=== PATIENT | female | born 1960 | race Caucasian/White ===

== ENCOUNTER → 2018-01-06 08:57 | Outpatient (CLI) | payer OTHER, SELFPAY ==
[2018-01-06 09:47] LABS: Alanine Aminotransferase 19 U/L (12-78); Albumin Level 3.5 gm/dL (3.4-5.0); Albumin/Globulin Ratio 0.8 (1.1-1.8); Alkaline Phosphatase 105 U/L (46-116); Aspartate Amino Transferase 17 U/L (15-37); Bilirubin,Total 0.5 mg/dL (0.2-1.0); Blood Urea Nitrogen 11 mg/dL (7-18); Calcium 9.4 mg/dL (8.5-10.1); Carbon Dioxide 28 mmol/L (21.0-32.0); Chloride 106 mmol/L (98-107); Chol/HDL Ratio 5.4 (1-3.5); Cholesterol 193 mg/dL (140-200); Creatinine,Serum 1.03 mg/dL (0.55-1.02); Estimated Glomerular Filt Rate 55 ml/min (>60); GFR (African American) 66 ML/MIN (>60); Globulin 4.3 gm/dl (1.3-3.2); Glucose 227 mg/dL (74-106); HDL Cholesterol 36 mg/dL (29-89); LDL Cholesterol 95 mg/dL (0-130); Sodium 142 mmol/L (136-145); Thyroid Stimulating Hormone 3.31 uIU/ml (0.358-3.740); Total Protein,Serum 7.8 gm/dL (6.4-8.2); Triglycerides 310 mg/dL (30-200); VLDL Cholesterol 62 mg/dL (0-40)
[2018-01-06 09:52] LABS: Hemoglobin A1C 9.4 % (0.0-7.0)
[2018-01-07 15:58] LABS: Vitamin D 25 Hydroxy 16.3 ng/mL (30.0-100.0)
== END ==
PROVIDERS: Visit Provider Physician Assistant
DX: E11.9 Type 2 diabetes mellitus without complications (principal); I10 Essential (primary) hypertension; E55.9 Vitamin D deficiency, unspecified; E78.5 Hyperlipidemia, unspecified; Z13.29 Encounter for screening for other suspected endocrine disorder
CPT/HCPCS: 36415; 80053; 80061; 82652; 83036; 84443

== ENCOUNTER → 2019-07-18 08:20 | Outpatient (CLI) | payer BC, SELFPAY ==
--- NOTE | 2019-07-18 08:30 | US_ITS ---
PROCEDURE: US ABDOMEN COMPLETE CLINICAL INDICATION: EPIGASTRIC MASS COMPARISON: RUQ US RUQ-(ABD LTD)1ORGAN/QUAD/FU from 11/20/2015 FINDINGS: PANCREAS: Unremarkable. No obvious mass or abnormal fluid collection. No ductal dilatation LIVER: Fatty liver. No ductal dilatation or focal mass. RIGHT KIDNEY: Unremarkable. Normal size and echogenicity. No hydronephrosis LEFT KIDNEY: Unremarkable. Normal size and echogenicity. No hydronephrosis GALLBLADDER: Post cholecystectomy. Common bile duct is normal at 2 mm. AORTA: No evidence of aneurysmal dilatation. SPLEEN: Unremarkable. Normal size and echogenicity ASCITES: None demonstrated. A palpable abnormality is reported at the region of the xiphoid. Homogeneous echogenicity is noted deep to this region and may be related to abdominal wall fat.. Consider CT for more thorough evaluation. 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 Dictated by: Maycol Collins MD 07/18/2019 11:45 Electronically signed by Maycol Collins MD in [place] 07/18/2019 11:45
== END ==
PROVIDERS: PCP Family Medicine; Visit Provider Family Medicine
DX: R19.06 Epigastric swelling, mass or lump (principal)
CPT/HCPCS: 76700

== ENCOUNTER → 2019-07-29 09:45 | Outpatient (CLI) | payer BC, SELFPAY ==
[2019-07-29 10:04] LABS: Blood Urea Nitrogen 13 mg/dL (7-18); Creatinine,Serum 1.04 mg/dL (0.55-1.02); Estimated Glomerular Filt Rate 54 ml/min (>60); GFR (African American) 65 ML/MIN (>60)
--- NOTE | 2019-07-29 10:28 | CT_ITS ---
PROCEDURE: CT ABDOMEN W CON CLINICAL INDICATION: EPIGASTRIC MASS Abdominal pain COMPARISON: No exams were available for comparison TECHNIQUE: IV Contrast: 75ML OPTIRAY 350 Oral Contrast none Axial images obtained with sagittal and coronal reformats. All CT scans at the facility use one or more dose reduction, viz: automated exposure control, ma/kV adjustment per patient size (including targeted exams where dose is matched to indication, i.e. head), or iterative reconstruction technique. FINDINGS: LOWER THORAX: No acute finding ABDOMEN & PELVIS: The liver, spleen, pancreas, adrenal glands, and kidneys show no acute finding. No intestinal obstruction or free air. No evidence of appendicitis or diverticulitis. No pelvic mass, abnormal fluid collection, or focal inflammatory change of the pelvis. No acute bony anomalies. There has been a prior cholecystectomy. There is a small hiatal hernia. There is slight increased density of the central mesenteric fat nonspecific. There is a small umbilical hernia which contains fat. A BB is placed at the palpable abnormality in the central epigastric region. The tip of the xiphoid process which slightly projects anteriorly is directly beneath the placed BB. There is no soft tissue mass. There may be some minimal thickening of the fascia at the tip of the xiphoid process. No abnormal fluid collections are evident. No bony mass. No acute bony findings. There are few small mesenteric lymph nodes present. IMPRESSION: Palpable abnormality corresponds to the tip of the xiphoid process which slightly projects anteriorly with some minimal overlying fascial thickening. No soft tissue mass or other acute anomaly evident. There is some mild nonspecific haziness of the central mesenteric fat. Dictated by: Maycol Collins MD 07/30/2019 09:32 Electronically signed by Maycol Collins MD in [place] 07/30/2019 09:32
== END ==
PROVIDERS: PCP Family Medicine; Visit Provider Physician Assistant
DX: R19.06 Epigastric swelling, mass or lump (principal)
CPT/HCPCS: 36415; 74160; 82565; 84520; Q9967

== ENCOUNTER → 2020-09-03 11:11 | Outpatient (CLI) | payer BC, SELFPAY ==
[2020-09-03 15:49] LABS: Coronavirus 19 IgG Antibody Negative (Negative); Coronavirus 19 IgM Antibody Negative (Negative)
== END ==
PROVIDERS: Visit Provider Ophthalmology
DX: Z01.818 Encounter for other preprocedural examination (principal); Z03.818 Encounter for observation for suspected exposure to other biological agents ruled out; H25.12 Age-related nuclear cataract, left eye
CPT/HCPCS: 36415; 86328

== ENCOUNTER 2020-09-04 07:31 | Day surgery (SDC) | payer BC, SELFPAY ==
[2020-08-28 11:44] VITALS: BMI 34.3
[2020-09-04 08:02] VITALS: BP 183/68; PULSE 88; RESP 18; TEMP 36.2; O2SAT 97
[2020-09-04 08:24] LABS: POC Glucose,Bedside 264 (70-110)
[2020-09-04 09:02] VITALS: BP 221/93; PULSE 72; RESP 16; O2SAT 97
[2020-09-04 09:07] VITALS: BP 224/104; PULSE 80; RESP 16; O2SAT 96
[2020-09-04 09:12] VITALS: BP 223/105; PULSE 79; RESP 16; O2SAT 97
[2020-09-04 09:17] VITALS: BP 216/99; PULSE 73; RESP 16; O2SAT 98
[2020-09-04 09:23] VITALS: BP 164/88; PULSE 88; RESP 16; TEMP 36.1; O2SAT 98
== END 2020-09-04 09:40 | disposition home or self-care (01) ==
LOC: OR 07:33
PROVIDERS: PCP Family Medicine; Visit Provider Ophthalmology
PROC: (CPT 66984; principal; 2020-09-04 09:00)
DX: H25.819 Combined forms of age-related cataract, unspecified eye (principal); H02.839 Dermatochalasis of unspecified eye, unspecified eyelid; E11.9 Type 2 diabetes mellitus without complications; I48.91 Unspecified atrial fibrillation; K21.9 Gastro-esophageal reflux disease without esophagitis; I10 Essential (primary) hypertension; E78.5 Hyperlipidemia, unspecified; Z80.9 Family history of malignant neoplasm, unspecified; Z85.54 Personal history of malignant neoplasm of ureter; Z88.8 Allergy status to other drugs, medicaments and biological substances; Z91.040 Latex allergy status; Z79.899 Other long term (current) drug therapy
CPT/HCPCS: 66984; 82962; V2632

== ENCOUNTER → 2021-01-21 12:17 | Outpatient (CLI) | payer BC, SELFPAY ==
[2021-01-21 13:47] LABS: Coronavirus 19 IgG Antibody Positive (Negative); Coronavirus 19 IgM Antibody Negative (Negative)
== END ==
PROVIDERS: Visit Provider Ophthalmology
DX: Z01.812 Encounter for preprocedural laboratory examination (principal); Z20.822 Contact with and (suspected) exposure to COVID-19; H25.11 Age-related nuclear cataract, right eye
CPT/HCPCS: 36415; 86328

== ENCOUNTER 2021-01-22 07:39 | Day surgery (SDC) | payer BC, SELFPAY ==
[2021-01-17 12:05] VITALS: BMI 34.1
[2021-01-22 08:47] VITALS: BP 168/86; PULSE 71; RESP 18; TEMP 36.3; O2SAT 99
[2021-01-22 08:58] LABS: POC Glucose,Bedside 177 (70-110)
[2021-01-22 09:28] VITALS: BP 173/79; PULSE 69; RESP 16; O2SAT 100
[2021-01-22 09:33] VITALS: BP 157/76; PULSE 66; RESP 16; O2SAT 100
[2021-01-22 09:38] VITALS: BP 161/79; PULSE 70; RESP 16; O2SAT 100
[2021-01-22 09:43] VITALS: BP 156/76; PULSE 68; RESP 16; O2SAT 100
[2021-01-22 09:47] VITALS: BP 161/82; PULSE 78; RESP 18; TEMP 36.2; O2SAT 98
== END 2021-01-22 09:56 | disposition home or self-care (01) ==
LOC: OR 07:40
PROVIDERS: PCP Family Medicine; Visit Provider Ophthalmology
PROC: (CPT 66984; principal; 2021-01-22 09:30)
DX: H25.811 Combined forms of age-related cataract, right eye (principal); H02.834 Dermatochalasis of left upper eyelid; H02.831 Dermatochalasis of right upper eyelid; I48.91 Unspecified atrial fibrillation; E11.9 Type 2 diabetes mellitus without complications; K21.9 Gastro-esophageal reflux disease without esophagitis; I10 Essential (primary) hypertension; E78.5 Hyperlipidemia, unspecified; Z88.8 Allergy status to other drugs, medicaments and biological substances; Z91.040 Latex allergy status; Z79.899 Other long term (current) drug therapy; Z80.9 Family history of malignant neoplasm, unspecified; Z83.3 Family history of diabetes mellitus; Z82.49 Family history of ischemic heart disease and other diseases of the circulatory system
CPT/HCPCS: 66984; 82962; V2632

== ENCOUNTER → 2021-05-14 11:00 | Outpatient (POV) | payer BC, SELFPAY | PROVIDERS: Visit Provider Dermatology | DX: Z00.00 Encounter for general adult medical examination without abnormal findings (principal) ==

== ENCOUNTER → 2022-04-07 07:46 | Outpatient (CLI) | payer BC, SELFPAY ==
[2022-04-07 08:26] LABS: Creatinine,Urine Random 242 mg/dL (Not Estab.)
[2022-04-07 08:32] LABS: Hemoglobin A1C 8.5 % (4.0-6.0); Microalbumin/Creatinine Ratio 6.8
[2022-04-07 08:52] LABS: Alanine Aminotransferase 17 U/L (12-78); Albumin Level 4.1 g/dl (3.5-5.0); Albumin/Globulin Ratio 1.5 (1.1-1.8); Alkaline Phosphatase 83 U/L (38-126); Anion Gap 12.3 mEq/L (5-15); Aspartate Amino Transferase 20 U/L (14-36); Blood Urea Nitrogen 18 mg/dl (7-17); Calcium 9.8 mg/dl (8.4-10.2); Carbon Dioxide 25 mmol/L (22.0-30.0); Chloride 106 mmol/L (98-107); Chol/HDL Ratio 4.7 (1-3.5); Cholesterol 164 mg/dl (140-200); Estimated Glomerular Filt Rate 56 ml/min (>60); GFR (African American) 68 ML/MIN (>60); Globulin 2.8 g/dL (1.3-3.2); Glucose 186 mg/dl (74-100); HDL Cholesterol 35 mg/dl (40-60); Potassium 4.3 mmoL/L (3.5-5.1); Sodium 139 mmol/L (136-145); Total Protein,Serum 6.9 g/dl (6.3-8.2); Triglycerides 335 mg/dl (30-150); VLDL Cholesterol 67 mg/dL (0-40)
[2022-04-07 08:53] LABS: Bilirubin,Total < 0.1 mg/dl (0.2-1.3)
[2022-04-07 09:03] LABS: Direct LDL Cholesterol 62.96 mg/dL (100-129)
== END ==
PROVIDERS: PCP Physician Assistant; Visit Provider Physician Assistant
DX: E11.9 Type 2 diabetes mellitus without complications (principal); E78.2 Mixed hyperlipidemia; E55.9 Vitamin D deficiency, unspecified; I10 Essential (primary) hypertension
CPT/HCPCS: 36415; 80053; 80061; 82043; 82306; 82570; 83036

== ENCOUNTER → 2022-07-24 08:47 | Outpatient (CLI) | payer BC, SELFPAY ==
[2022-07-24 10:14] LABS: Hemoglobin A1C 6.8 % (4.0-6.0)
[2022-07-24 10:23] LABS: Alanine Aminotransferase 16 U/L (12-78); Albumin Level 4.2 g/dl (3.5-5.0); Albumin/Globulin Ratio 1.6 (1.1-1.8); Alkaline Phosphatase 98 U/L (38-126); Anion Gap 18.3 mEq/L (5-15); Aspartate Amino Transferase 21 U/L (14-36); Bilirubin,Total 0.2 mg/dl (0.2-1.3); Blood Urea Nitrogen 22 mg/dl (7-17); Calcium 9.5 mg/dl (8.4-10.2); Carbon Dioxide 26 mmol/L (22.0-30.0); Chloride 102 mmol/L (98-107); Chol/HDL Ratio 4.6 (1-3.5); Cholesterol 171 mg/dl (140-200); Estimated Glomerular Filt Rate 63 ml/min (>60); GFR (African American) 76 ML/MIN (>60); Globulin 2.7 g/dL (1.3-3.2); Glucose 163 mg/dl (74-100); HDL Cholesterol 37 mg/dl (40-60); Potassium 5.3 mmoL/L (3.5-5.1); Sodium 141 mmol/L (136-145); Total Protein,Serum 6.9 g/dl (6.3-8.2); Triglycerides 251 mg/dl (30-150); VLDL Cholesterol 50 mg/dL (0-40)
[2022-07-24 10:34] LABS: Direct LDL Cholesterol 70.58 mg/dL (100-129)
[2022-07-24 10:37] LABS: 25-OH Vitamin D, Total 51.3 ng/mL (30-100)
== END ==
PROVIDERS: PCP Physician Assistant; Visit Provider Physician Assistant
DX: E11.9 Type 2 diabetes mellitus without complications (principal); E55.9 Vitamin D deficiency, unspecified; E78.2 Mixed hyperlipidemia; I10 Essential (primary) hypertension
CPT/HCPCS: 36415; 80053; 80061; 82306; 83036

== ENCOUNTER → 2023-06-22 09:31 | Outpatient (CLI) | payer MEDICARE, SELFPAY ==
[2023-06-22 10:21] LABS: Hemoglobin A1C 8.2 % (4.0-6.0)
[2023-06-22 10:47] LABS: Alanine Aminotransferase 25 U/L (12-78); Albumin Level 4.2 g/dl (3.5-5.0); Albumin/Globulin Ratio 1.5 (1.1-1.8); Alkaline Phosphatase 83 U/L (38-126); Anion Gap 12.5 mEq/L (5-15); Aspartate Amino Transferase 24 U/L (14-36); Bilirubin,Total 0.4 mg/dl (0.2-1.3); Blood Urea Nitrogen 16 mg/dl (7-17); Calcium 9.6 mg/dl (8.4-10.2); Carbon Dioxide 26 mmol/L (22.0-30.0); Chloride 105 mmol/L (98-107); Chol/HDL Ratio 5.4 (1-3.5); Cholesterol 182 mg/dl (140-200); Estimated Glomerular Filt Rate 72 ml/min (>60); GFR (African American) 87 ML/MIN (>60); Globulin 2.8 g/dL (1.3-3.2); Glucose 201 mg/dl (74-100); HDL Cholesterol 34 mg/dl (40-60); Potassium 4.5 mmoL/L (3.5-5.1); Sodium 139 mmol/L (136-145); Triglycerides 357 mg/dl (30-150); VLDL Cholesterol 71 mg/dL (0-40)
[2023-06-22 10:59] LABS: 25-OH Vitamin D, Total 50.1 ng/mL (30-100)
== END ==
PROVIDERS: PCP Family Medicine; Visit Provider Physician Assistant
DX: E78.2 Mixed hyperlipidemia (principal); I10 Essential (primary) hypertension; E55.9 Vitamin D deficiency, unspecified; E11.9 Type 2 diabetes mellitus without complications; Z79.84 Long term (current) use of oral hypoglycemic drugs
CPT/HCPCS: 36415; 80053; 80061; 82306; 83036

== ENCOUNTER → 2023-09-03 15:00 | Outpatient (CLI) | payer MEDICARE, SELFPAY ==
--- NOTE | 2023-09-03 15:03 | CA_ITS ---
APPROVED REPORT EXAM: Comprehensive 2D, Doppler, and color-flow Echocardiogram Nurse Unit Manager: Silvia Wolff RVT Ht: 5 ft 5 in Wt: 210lbs BSA: 2.02 BP: 145/80 mmHg Indications: SOA,EDEMA 2D Dimensions LA Volume 51.70 mL LA Volume Index 25.59 mL/m2 (M/F) 16-34 M-Mode Dimensions RVDd 2.28 cm (0.9-2.6) LA Diam 4.61 cm (1.9-4.0) LVDd 4.96 cm (3.5-5.7) LVDs 3.60 cm (3.5-5.7) IVSd 1.14 cm (0.6-1.1) PWd 0.68 cm (0.6-1.1) EF (Teich) 53.10% FS 27.40% EDV (Teich) 116.10 mL TAPSE 2.64 (<1.7) ESV (Teich) 54.40 mL LV Diastology E Decel Time 233 (160-240 msec) E/A Ratio 1.8 Aortic Valve AO Peak GR. 7.70 mmHg Mitral Valve MV E Max Nadeem. 109.0 (40-130 cm/s) MV A Velocity 59.0 (40-130 cm/s) E/A Ratio 1.85 MV PHT 68.0 ms Pulmonary Valve PV Peak Velocity 109.0 (50-150 cm/s) Tricuspid Valve TR P. Velocity 316.00 cm/s RAP Estimate 10.00 mmHg RVSP 49.80 mmHg Left Ventricle The left ventricle is normal size. The left ventricular systolic function is normal. The left ventricular ejection fraction is within the normal range. There is normal LV wall thickness. There is normal LV segmental wall motion. The left ventricular diastolic function is normal. LVEF is 55%. Right Ventricle The right ventricle is normal size. The right ventricular systolic function is normal. Atria The left atrium size is mildly dilated. Right atrium is mildly dilated. There is no Doppler evidence of interatrial shunt. Aortic Valve The aortic valve is mildly thickened. There is no aortic valvular stenosis. No aortic regurgitation is present. Mitral Valve The mitral valve leaflets are mildly thickened. No evidence of mitral valve stenosis. Mild mitral regurgitation. Tricuspid Valve The tricuspid valve leaflets are thin and pliable. Moderate tricuspid regurgitation. RVSP is 40-45 mmHg. Pulmonic Valve The pulmonary valve is normal in structure. Trace pulmonic regurgitation. Great Vessels The aortic root is normal in size. The ascending aorta is normal in size. IVC is normal in size and collapses >50% with inspiration. Pericardium There is no pericardial effusion. Other Information Study Quality: Fair Conclusion Normal biventricular systolic function. Mild RV dilation. Mild biatrial dilation. Mild MR. Moderate TR. Elevated RVSP 40-45 mmHg. Electronically signed by : Maribel Hudson MD 09/07/2023 10:11:52
== END ==
PROVIDERS: PCP Family Medicine; Visit Provider Physician Assistant
DX: R06.02 Shortness of breath (principal); R60.0 Localized edema
CPT/HCPCS: 93306

== ENCOUNTER 2023-10-01 12:58 | Outpatient (CLI) | payer MEDICARE, SELFPAY ==
--- NOTE | 2023-10-01 12:58 | NM_ITS ---
FINAL REPORT CLINICAL HISTORY: Shortness of breath, pfo, pulmonary htn chest xray was done today 1:15 pm 36.6 mci DTPA 2:00 pm 7.83 mci Maa injected in lt ant COMPARISON: 10/01/2023 chest radiograph FINDINGS: NUCLEAR MEDICINE VENTILATION AND PERFUSION IMAGING TECHNIQUE: V/Q scan is performed utilizing 36.6 technetium 99 mCi M DTPA aerosol and IV administration of 7.83 mCi technetium 99 M MAA. Images were obtained in AP, PA, lateral, and oblique projections. There is no evidence of segmental or subsegmental mismatch perfusion defects. IMPRESSION: Low probability for pulmonary embolus. Reviewed, Interpreted and Dictated by Juanjo Vital III, MD Transcribed by Stefani Davis Authenticated and [facility]
[2023-10-01] MEDS: SODIUM CHLORIDE 0.9% 10ML SYR (RAD ONLY) 10 ML IV (13:53)
[2023-10-01] MEDS: ISOTOPE DTPA(AEROSOL);1 DOSE (UP TO 75 MCI) IV (13:53)
[2023-10-01] MEDS: ISOTOPE TC MAA;1 DOE (UP TO 45 MCI) 1 DOSE IV (13:53)
--- NOTE | 2023-10-01 14:03 | XR_ITS ---
FINAL REPORT CLINICAL HISTORY: SOB FINDINGS: TWO-VIEW CHEST The heart size is normal. The mediastinum is normal. The lungs are clear. There is no pneumothorax. There is moderate to severe degenerative change of the thoracic spine. IMPRESSION: No acute cardiopulmonary process. Reviewed, Interpreted and Dictated by Juanjo Vital III, MD Transcribed by Susie Khan Authenticated and [facility]
== END 2023-10-01 23:59 ==
LOC: RAD 12:58
PROVIDERS: PCP Family Medicine; Visit Provider Physician Assistant
DX: E11.9 Type 2 diabetes mellitus without complications (principal); I10 Essential (primary) hypertension; I27.20 Pulmonary hypertension, unspecified; Q21.12 Patent foramen ovale; R06.02 Shortness of breath; Z79.84 Long term (current) use of oral hypoglycemic drugs
CPT/HCPCS: 71046; 78582; A9540; A9567

== ENCOUNTER 2023-10-05 07:35 | Day surgery (SDC) | payer MEDICARE, SELFPAY ==
[2023-10-01 14:52] VITALS: BMI 33.6
[2023-10-05] VITALS (7 sets, daily range): BP systolic 100–137; BP diastolic 53–73; PULSE 47–66; RESP 16–18; TEMP 36.2–36.4; O2SAT 96–97
[2023-10-05] MEDS: LACTATED RINGERS 1000ML 1,000 ML 25 ML IV (08:12)
[2023-10-05 08:24] LABS: Chloride 103 mmol/L (98-107); Sodium 139 mmol/L (136-145)
[2023-10-05 08:25] LABS: Basophils % 0.5 % (0.1-2.0); Eosinophils # 0.4 K/mm3 (0.0-0.4); Eosinophils % 6.2 % (0.1-12.0); Hematocrit 36.1 % (37.0-47.0); Lymphocytes # 2.1 K/mm3 (0.7-4.5); Lymphocytes % 33.2 % (10-50); Mean Corpuscular HGB Conc 33.2 g/dL (31.8-35.4); Mean Corpuscular Hemoglobin 27.6 pg (27.0-31.2); Mean Corpuscular Volume 83.1 fl (81-99); Mean Platelet Volume 8.1 fl (7.4-10.4); Monocytes # 0.3 K/mm3 (0.1-1.0); Monocytes % 4.8 % (1.7-9.3); Neutrophils # 3.5 K/mm3 (1.8-7.8); Neutrophils % 55.3 % (37.0-80.0); Platelet Count 223 K/mm3 (142-424); Potassium 4.5 mmoL/L (3.5-5.1); Red Blood Count 4.35 M/mm3 (4.20-5.40); Red Cell Distribution Width 16.3 % (11.5-17.5); White Blood Count 6.4 K/mm3 (4.8-10.8)
[2023-10-05 08:27] LABS: Blood Urea Nitrogen 33 mg/dl (7-17); Creatinine Clearance Estimated 58 mL/min (50-200); Estimated Glomerular Filt Rate 38 ml/min (>60); GFR (African American) 46 ML/MIN (>60)
[2023-10-05 08:28] LABS: Anion Gap 15.5 mEq/L (5-15); Carbon Dioxide 25 mmol/L (22.0-30.0); Glucose 151 mg/dl (74-100)
[2023-10-05 08:35] LABS: INR 0.98 (0.9-1.1); Prothrombin Time 10.6 seconds (10.1-12.5)
--- NOTE | 2023-10-05 08:48 | ECG_ITS ---
APPROVED REPORT Exam: Resting ECG HR:62 bpm ECG Measurements Heart Rate 62 AXES WV 183 P 69 QRSd 91 QRS 16 QT 391 T 59 QTc 396 Conclusion SINUS RHYTHM NORMAL ECG UNCONFIRMED REPORT Electronically signed by : Dariel Perrin MD 10/05/2023 17:47:04
--- NOTE | 2023-10-05 08:59 | CA_ITS ---
APPROVED REPORT EXAM: Comprehensive 2D, Doppler, and color-flow Echocardiogram [employer] Clerk: Silvia WolffJORGE Ht: 5 ft 6 in Wt: 202lbs BSA: 2.01 BP: 181/68 mmHg Indications: R/O PFO,DYSPENA,HTN,DM,PHTN Procedure After obtaining informed consent, patient underwent transesophageal echo in the [facility]. Type of Sedation : MAC Sedation start time: 10:00 Case end Time: 10:20 Propofol () Transesophageal probe was inserted and advanced into esophagus without difficulty by Dr. Dale Hudson. The SIERRA was performed without complications. Throughout the procedure, the blood pressure, pulse oximetry, cardiac rhythm, and rate were monitored. The patient tolerated the procedure without adverse effects. Recovery from conscious sedation was uneventful and vital signs were stable. Left Ventricle The left ventricle is normal size. The left ventricular systolic function is normal. The left ventricular ejection fraction is within the normal range. There is normal left ventricular wall thickness. There is normal LV segmental wall motion. LVEF is 55%. Right Ventricle The right ventricle is normal size. The right ventricular systolic function is normal. Atria The left atrium is dilated. There is no thrombus suspected in the left atrium or the left atrial appendage. The right atrium size is normal. Interatrial septum is intact without evidence of ASD or PFO. There is no Doppler evidence of interatrial shunt. Administration of agitated saline at rest and with Valsalva demonstrate no evidence of PFO. Aortic Valve The aortic valve is mildly thickened. There is no aortic valvular stenosis. Mild aortic regurgitation. Mitral Valve The mitral valve leaflets are mildly thickened. There is mild prolapse of the anterior review leaflet. No evidence of mitral valve stenosis. Trace mitral regurgitation. Tricuspid Valve The tricuspid valve leaflets are thin and pliable. Mild tricuspid regurgitation. RVSP is 25-30 mmHg. Pulmonic Valve The pulmonary valve is normal in structure. Trace pulmonic regurgitation. Great Vessels The aortic root is normal in size. The ascending aorta is normal in size. Pericardium There is no pericardial effusion. Other Information Study Quality: Adequate Conclusion Normal biventricular systolic function. Mild AI, mild TR. Interatrial septum is intact without evidence of ASD or PFO. There is no Doppler evidence of interatrial shunt. Administration of agitated saline at rest and with Valsalva demonstrate no evidence of PFO. Electronically signed by : Maribel Hudson MD 10/05/2023 15:39:20
--- NOTE | 2023-10-05 09:24 | EXP.ANES.CKL ---
[facility] Disclaimer: The information contained in this section may have been updated after the patient was seen, as this information can be updated by other users. Medical History Diabetes HTN (hypertension) PFO (patent foramen ovale) Pulmonary hypertension Family History Other No significant family history Social History Smoking Status: Never smoker second hand exposure: No alcohol intake: never substance use type: denies use current occupational status: retired Travel in the last 8 weeks: None household members: spouse housing: house caffeine: Yes [facility] Anesthesia Checklist Patient Identification Patient Identification: Arm Band, Family and Verbal (Name & ) Structural Data Admitted From: Home Planned Operative Procedure/s: SIERRA Consent for Planned Operative Procedure(s) Verified: Yes Verified Documents: Surgical Consent and History and Physical NPO Status Verified Time NPO: 22:30 Chart Verification Results Verified: CBC, BMP, PT, PTT, INR, ECG and Chest Xray Additional verifications Fingerstick Blood Glucose: 154 Patient : No Anesthesia Reactions: No Cephalosporin Allergy: No Cardiovascular Assessment Heart Sounds: S1 & S2 Pulse Rhythm: Irregular Peripheral Edema: No Airway Assessment Mallampati Score:: Class II C-Spine Mobility Assessed: Yes (FROM) TMJ Mobility Assessed: Yes Dentition: Good Dentition (Nothing loose per pt.) Neurological Assessment Level of Consciousness: Awake, Alert, Appropriate and Follows Commands Hx Seizures: No Numbness or tingling in extremities: No Anesthesia Plan Anesthesia Risk discussed: Yes Anesthesia Plan: Verified ASA Class: III Anesthesia Type: MAC
--- NOTE | 2023-10-05 10:30 | P.PNANES_ITS ---
[facility] Anesthesia Record Part I Anesthesia Record I Intake, IV Amount: 500 Hydration: Adequate Estimated blood loss (mL): 0 Urine output (mL): 0 Blood Pressure: 108/64 SaO2: 96 Pulse Rate: 54 Airway Patency: Patent Respiratory Rate: 16 Temperature: 97.1 F Patient is:: Awake (Talking) Stable to PACU at:: 10:30
[2023-10-06 11:33] LABS: POC Glucose,Bedside 154 (70-110)
== END 2023-10-05 11:02 | disposition home or self-care (01) ==
PROVIDERS: PCP Family Medicine; Visit Provider Internal Medicine
DX: E11.9 Type 2 diabetes mellitus without complications (principal); I10 Essential (primary) hypertension; I27.20 Pulmonary hypertension, unspecified; Q21.12 Patent foramen ovale; Z79.899 Other long term (current) drug therapy; Z79.84 Long term (current) use of oral hypoglycemic drugs
CPT/HCPCS: 80048; 82962; 85025; 85610; 93005; 93270; 93312; 93319; 96372

== ENCOUNTER 2024-02-23 08:33 | Day surgery (SDC) | payer MEDICARE, SELFPAY ==
[2024-02-23] MEDS: APRACLONIDINE 0.5% OPHTH SOLN 5ML OP (09:12)
[2024-02-23] MEDS: PHENYLEPHRINE 2.5% OPHTH SOLN 2ML OP (09:12)
[2024-02-23] MEDS: TETRACAINE 0.5% OPTH SOL 15ML OP (09:12)
[2024-02-23] MEDS: TROPICAMIDE 1% OPTH SOLN 2ML OP (09:13)
[2024-02-23 09:23] VITALS: BP 188/82; PULSE 65; RESP 18; O2SAT 97; BMI 33.9
[2024-02-23 09:39] LABS: POC Glucose,Bedside 136 (70-110)
== END 2024-02-23 10:33 | disposition home or self-care (01) ==
PROVIDERS: PCP Physician Assistant; Visit Provider Ophthalmology
PROC: (CPT 66821; principal; 2024-02-23 09:30)
DX: H26.493 Other secondary cataract, bilateral (principal); Z79.899 Other long term (current) drug therapy
CPT/HCPCS: 66821; 82962

== ENCOUNTER 2025-01-23 10:43 | Outpatient (CLI) | payer MEDICARE, SELFPAY ==
[2025-01-23 11:37] LABS: Alanine Aminotransferase 24 U/L (12-78); Albumin Level 4.2 g/dl (3.5-5.0); Albumin/Globulin Ratio 1.5 (1.1-1.8); Alkaline Phosphatase 63 U/L (38-126); Anion Gap 10.1 mEq/L (5-15); Aspartate Amino Transferase 25 U/L (14-36); Bilirubin,Total 0.5 mg/dl (0.2-1.3); Blood Urea Nitrogen 17 mg/dl (7-17); Calcium 9.5 mg/dl (8.4-10.2); Carbon Dioxide 26 mmol/L (22.0-30.0); Chloride 108 mmol/L (98-107); Chol/HDL Ratio 4.5 (1-3.5); Cholesterol 189 mg/dl (140-200); Estimated Glomerular Filt Rate 63 ml/min (>60); GFR (African American) 76 ML/MIN (>60); Globulin 2.8 g/dL (1.3-3.2); Glucose 151 mg/dl (74-100); HDL Cholesterol 42 mg/dl (40-60); Potassium 4.1 mmoL/L (3.5-5.1); Sodium 140 mmol/L (136-145); Triglycerides 310 mg/dl (30-150); VLDL Cholesterol 62 mg/dL (0-40)
[2025-01-23 11:46] LABS: Hemoglobin A1C 6.9 % (4.0-6.0)
[2025-01-23 11:48] LABS: Direct LDL Cholesterol 60.05 mg/dL (100-129)
[2025-01-23 11:53] LABS: 25-OH Vitamin D, Total 77.3 ng/mL (30-100)
[2025-01-23 11:55] LABS: Creatinine,Urine Random 165 mg/dL (Not Estab.)
== END 2025-01-23 23:59 | disposition home or self-care (01) ==
LOC: LAB 10:44
PROVIDERS: PCP Physician Assistant; Visit Provider Physician Assistant
DX: E78.5 Hyperlipidemia, unspecified (principal); E11.9 Type 2 diabetes mellitus without complications; E55.9 Vitamin D deficiency, unspecified; Z79.84 Long term (current) use of oral hypoglycemic drugs
CPT/HCPCS: 36415; 80053; 80061; 82043; 82306; 82570; 83036